=== PATIENT | female | born 1995 | race Caucasian/White ===

== ENCOUNTER 2018-08-02 11:56 | Emergency (ER) | payer OTHER, MEDICAID | END 2018-08-02 13:53 | disposition home or self-care (01) | LOC: FTE 13:53 | DX: O98.113 Syphilis complicating pregnancy, third trimester (principal); Z00.00 Encounter for general adult medical examination without abnormal findings; Z3A.30 30 weeks gestation of pregnancy | CPT/HCPCS: 99282; Z7502 ==

== ENCOUNTER 2018-08-21 13:26 | Outpatient (CLI) | payer OTHER | END 2018-08-21 18:33 | disposition home or self-care (01) | LOC: OBT 13:26 → L-D 13:26 → OBT 18:33 | DX: O36.5930 Maternal care for other known or suspected poor fetal growth, third trimester, not applicable or unspecified (principal); Z3A.35 35 weeks gestation of pregnancy | CPT/HCPCS: 76815; 76818; 76820 ==

== ENCOUNTER 2018-08-23 11:24 | Outpatient (CLI) | payer OTHER ==
[2018-08-23 14:43] LABS: ADD MAN DIFF? NO
[2018-08-23 14:48] LABS: BASOPHIL # 0.1 10^3/ul (0.0-0.1); BASOPHILS % 0.5 % (0.0-2.0); EOSINOPHILS % 0.4 % (0.0-7.0); HEMATOCRIT 38.5 % (37.0-47.0); HEMOGLOBIN 12.8 g/dl (12.0-16.0); LYMPHOCYTES # 1.5 10^3/ul (0.8-2.9); LYMPHOCYTES % 15.6 % (15.0-51.0); MEAN CORPUSCULAR HEMOGLOBIN 31.2 pg (29.0-33.0); MEAN CORPUSCULAR HGB CONC 33.2 g/dl (32.0-37.0); MEAN CORPUSCULAR VOLUME 93.9 fl (82.0-101.0); MEAN PLATELET VOLUME 11.1 fl (7.4-10.4); MONOCYTE # 0.6 10^3/ul (0.3-0.9); MONOCYTES % 6.5 % (0.0-11.0); NEUTROPHIL # 7.2 10^3/ul (1.6-7.5); NEUTROPHILS % 74.2 % (39.0-77.0); PLATELET COUNT 165 10^3/UL (140-415); RED CELL DISTRIBUTION WIDTH 13.5 % (11.5-14.5)
[2018-08-23 14:48] LABS: WHITE BLOOD COUNT 9.7 10^3/ul (4.8-10.8)
[2018-08-23] MEDS: LACTATED RINGER'S 1,000 ML IV (15:06)
[2018-08-23 15:21] LABS: INR 0.94; PROTIME 12.7 Sec (11.9-14.9)
[2018-08-23 15:22] LABS: PARTIAL THROMBOPLASTIN TIME 31.3 Sec (23.0-35.0)
[2018-08-23 15:53] LABS: HEPATITIS B SURFACE ANTIGEN NEGATIVE (NEGATIVE)
[2018-08-23] MEDS: BETAMET NA PHOS/AC(6 MG/ML) 2 ML INJ SYG IM (16:23)
== END 2018-08-23 16:30 | disposition home or self-care (01) ==
LOC: OBT 11:24 → L-D 11:24 → OBT 16:30
DX: O36.5930 Maternal care for other known or suspected poor fetal growth, third trimester, not applicable or unspecified (principal); O62.9 Abnormality of forces of labor, unspecified; Z3A.35 35 weeks gestation of pregnancy
CPT/HCPCS: 36415; 76815; 76818; 76820; 85025; 85610; 85730; 86850; 86900; 86901; 87340; 96372

== ENCOUNTER 2018-08-24 15:07 | Outpatient (CLI) | payer OTHER ==
[2018-08-24] MEDS: BETAMET NA PHOS/AC(6 MG/ML) 2 ML INJ SYG IM (16:18)
[2018-08-25] MEDS ORDERED: morphine SULFATE/PF (10 MG/10 ML) INJ (19:49)
[2018-08-25] MEDS ORDERED: OXYTOCIN 30 UNITS/LR 500 ML IV ×2 (19:49→21:17)
[2018-08-25] MEDS ORDERED: ONDANSETRON 4 MG INJ (19:50)
[2018-08-25] MEDS ORDERED: METOCLOPRAMIDE 10 MG INJ (19:50)
[2018-08-25] MEDS ORDERED: KETOROLAC 30 MG INJ (19:50)
[2018-08-25] MEDS ORDERED: PHENYLephrine (100 MCG/ML) 5ML SYG (20:14)
== END 2018-08-24 21:00 | disposition home or self-care (01) ==
LOC: OBT 15:07 → L-D 15:08 → OBT 21:00
DX: O41.03X0 Oligohydramnios, third trimester, not applicable or unspecified (principal); Z3A.35 35 weeks gestation of pregnancy
CPT/HCPCS: 76818; 96372